=== PATIENT | male | born 1955 | race Caucasian/White ===

== ENCOUNTER 2018-02-07 11:17 | Emergency (ER) | payer SELFPAY ==
[~2018-02-07] VITALS: Ht 170.2 cm; Wt 108.9 kg
--- NOTE | 2018-02-07 11:17 | NUR ---
Patient BIBA to bed 11.
--- NOTE | 2018-02-07 11:30 | NUR ---
PATIENT DEBORAH WITH ALOC ON THE SCENE, AAOX4 AT ED, STATED HAD A FALL AND PASSED OUT ON THE STREET, GENERALIZED PAIN 10/10, GENERALIZED WEAKNESS NOTED, STATED NOT EAT FOR SEVERAL DAYS, CHEST PAIN SOMETIMES, SOB WITH COUGHING, ABDOMINAL PAIN, NAUSEA, ALSO PAIN WHEN URINATING, BLE PAIN. RHOCHI LUNG SOUNDS NOTED, HR EVEN AND REGULAR; SKIN IS PINK/WARM/DRY; DISCOLORATED TO BLE NOTED, VSS; PATIENT POSITIONED FOR COMFORT; HOB ELEVATED; BEDRAILS UP X2; BED DOWN. ER MD MADE AWARE OF PT STATUS.
--- NOTE | 2018-02-07 11:35 | NUR ---
Patient being evaluated by physician at bedside.
[2018-02-07 11:48] LABS: BASOPHILS % (AUTO) 0.5 % (0.0-2.0); EOSINOPHILS # (AUTO) 0.1 K/uL (0-0.4); EOSINOPHILS % (AUTO) 1.4 % (0.0-4.0); HEMATOCRIT 46.5 % (36-52); HEMOGLOBIN 15.8 g/dL (12.0-18.0); LYMPHOCYTES # (AUTO) 1.9 K/uL (2.0-11.5); LYMPHOCYTES % (AUTO) 26.3 % (20.5-51.1); MEAN CORPUSCULAR HEMOGLOBIN 31 pg (27-31); MEAN CORPUSCULAR HGB CONC 34 g/dL (33-37); MEAN CORPUSCULAR VOLUME 91.2 fL (80-94); MONOCYTES # (AUTO) 0.5 K/uL (0.8-1.0); MONOCYTES % (AUTO) 6.4 % (1.7-9.3); NEUTROPHILS # (AUTO) 4.8 K/uL (1.8-7.7); NEUTROPHILS % (AUTO) 65.4 % (42.2-75.2); PLATELET COUNT (AUTO) 227 K/uL (140-450); RED CELL DISTRIBUTION WIDTH 14.7 % (11.6-13.7); WHITE BLOOD COUNT (AUTO) 7.4 K/uL (4.8-10.8)
[2018-02-07 11:59] LABS: CARBON DIOXIDE 25.9 mmol/L (21-32); CHLORIDE 106 mmol/L (98-107); CREATININE 0.8 mg/dL (0.7-1.3); GFR ARICAN-AMERICAN 126 mL/min (>90); GLUCOSE 102 mg/dL (74-106); POTASSIUM 3.9 mmol/L (3.5-5.1); SODIUM SERUM 140 mmol/L (136-145); UREA NITROGEN, BLOOD 25 mg/dL (7-18)
--- NOTE | 2018-02-07 12:00 | NUR ---
NO ABLE TO COLLECT URINE, MADE AWARE.
[2018-02-07 12:05] LABS: ALBUMIN 3.6 g/dL (3.4-5.0); ASPARTATE AMINOTRANSFERASE 26 U/L (15-37); SALICYLATE 3.4 mg/dL (2.8-20.0); TOTAL BILIRUBIN 0.7 mg/dL (0.0-1.0)
[2018-02-07 12:07] LABS: ACETAMINOPHEN < 0.5 ug/ml (10-30)
[2018-02-07 12:11] VITALS: BP 120/73
--- NOTE | 2018-02-07 14:00 | NUR ---
PT IS ASLEEP IN BED, NO S/S OF DISTRESS, VSS.
--- NOTE | 2018-02-07 16:00 | NUR ---
NO CHANGE OF CONDITION AT THIS TIME, STILL SLEEP, VSS.
--- NOTE | 2018-02-07 18:00 | NUR ---
PT IS AWAKE, ASK FOR FOOD, FOOD OFFERED.
[2018-02-07 19:10] VITALS: BP 119/79
--- NOTE | 2018-02-07 19:10 | NUR ---
Patient discharged with v/s stable. Written and verbal after care instructions given and explained. Patient alert, oriented and verbalized understanding of instructions. All questions addressed prior to discharge. ID band removed. Patient advised to follow up with PMD. Rx of MOTRIN given. Patient educated on indication of medication including possible reaction and side effects. Opportunity to ask questions provided and answered.
== END 2018-02-07 19:10 | disposition home or self-care (01) ==
LOC: MED 11:17
DX: R55 Syncope and collapse (principal); M79.604 Pain in right leg; M79.605 Pain in left leg; J44.9 Chronic obstructive pulmonary disease, unspecified; E11.9 Type 2 diabetes mellitus without complications; I10 Essential (primary) hypertension; F17.290 Nicotine dependence, other tobacco product, uncomplicated
CPT/HCPCS: 36415; 70450; 71045; 80053; 82140; 82550; 83880; 84484; 85025; 93005; 99285; G0480; G0482

== ENCOUNTER 2018-02-08 13:58 | Emergency (ER) | payer SELFPAY ==
[~2018-02-08] VITALS: Ht 170.2 cm; Wt 113.4 kg
[2018-02-08 14:01] VITALS: BP 153/77
--- NOTE | 2018-02-08 14:15 | NUR ---
PT. BIB BLS DUE TO ALTERED ALOC. PER BLS " PT. WAS OUTSIDE OF [facility] EATING CHIPS AND LAYING DOWN AND THEY CALLED". PT. IS AWAKE UPON ARRIVAL AND SMILING. PERRL 3MM BILAT. BILAT HAND BLUEPRINT CLERK 3+ STRONG. RR EVEN AND UNLABORED. 3/10 ACHING PAIN IN BILAT . LEGS. PT. UNABLE TO PROVIDE MEDICAL HX. DENIES ANY ALLERGIES TO MEDICATION AAO X3 TO PLACE, NAME, AND YEAR. ER MD NOTIFIED. WILL CONTINUE TO MONITOR. SAFETY PRECAUTIONS IMPLEMENTED.
[2018-02-08 14:56] VITALS: BP 137/73
--- NOTE | 2018-02-08 14:56 | NUR ---
PT. PROVIDED TW A BUS PASS. STEADY GAIT, RR EVEN AND UNLABORED. Patient discharged with v/s stable. Written and verbal after care instructions given and explained. Patient verbalized understanding. Ambulatory with steady gait. All questions addressed prior to discharge. Advised to follow up with PMD.
== END 2018-02-08 14:56 | disposition home or self-care (01) ==
LOC: MED 13:58
DX: Z00.00 Encounter for general adult medical examination without abnormal findings (principal); R55 Syncope and collapse; E11.9 Type 2 diabetes mellitus without complications; I10 Essential (primary) hypertension; J43.9 Emphysema, unspecified; Z59.0 Homelessness
CPT/HCPCS: 99283

== ENCOUNTER 2018-08-06 07:59 | Emergency (ER) | payer SELFPAY ==
[~2018-08-06] VITALS: Ht 177.8 cm; Wt 122.5 kg
--- NOTE | 2018-08-06 08:00 | NUR ---
PATIENT TO BED 9 BY EMS AT THIS TIME.
[2018-08-06 08:01] VITALS: BP 156/102
--- NOTE | 2018-08-06 08:14 | NUR ---
PT BIB AMBULANCE TO THE ED WITH THE CHIEF C/O B/L LEG PAIN. PT STATES OF CHRONIC PAIN SINCE 7 MONTHS. NOT TAKING ANY PAIN MEDICINE PER PT. NO INJURY OR SWELLING NOTED ON BOTH LOWER EXTREMITIES. PT ABLE TO MOVE BOTHE EXTREMITIES. AFEBRILE. STATES PAIN OF 7/10. POOR HISTORIAN. PT KEPT IN BED. HOB ELEVATED. BED IN LOW POSITION LOCKED. ER AWARE.
--- NOTE | 2018-08-06 08:31 | NUR ---
PT BEING SEEN BY DOCTOR AT THIS TIME.
[2018-08-06] MEDS ORDERED: IBUPROFEN 400 MG TAB PO ONE (08:35)
--- NOTE | 2018-08-06 09:57 | NUR ---
Patient discharged with v/s stable. Written and verbal after care instructions given and explained. Patient alert, oriented and verbalized understanding of instructions. Ambulatory with steady gait. All questions addressed prior to discharge. ID band removed. Patient advised to follow up with PMD. Rx of NAPROSYN given. Patient educated on indication of medication including possible reaction and side effects. Opportunity to ask questions provided and answered. Meal pack provided. Bus pass provided.
[2018-08-06 10:01] VITALS: BP 136/84
== END 2018-08-06 09:57 | disposition home or self-care (01) ==
LOC: MED 07:59
DX: M79.10 Myalgia, unspecified site (principal); M25.572 Pain in left ankle and joints of left foot; M25.571 Pain in right ankle and joints of right foot; J44.9 Chronic obstructive pulmonary disease, unspecified; E11.9 Type 2 diabetes mellitus without complications; I10 Essential (primary) hypertension; F17.200 Nicotine dependence, unspecified, uncomplicated
CPT/HCPCS: 99283